=== PATIENT | female | born 1960 | race Caucasian/White ===

== ENCOUNTER 2021-11-30 09:11 | Outpatient (CLI) | payer BC, SELFPAY ==
--- NOTE | ~2021-11-30 | US_ITS ---
EXAMINATION: US soft tissue LE RT DATE: 11/30/2021 09:45 INDICATION: Localized swelling, mass and lump at the lateral right thigh. TECHNIQUE: Multiple grayscale and Doppler ultrasound images of the region of concern at the lateral r ight thigh were obtained. COMPARISON: None FINDINGS: At the region of concern there is elongated heterogeneously hypoechoic region with poorly defined mar gins at the periphery of the musculature likely the vastus lateralis which lies deep to the superfici al fascia and measures 5 cm craniocaudal length, 1 cm in width and 0.5 cm in thickness. Some vascular flow seen within the region including extending through a perforating vessel which extends to the fa scia at the central portion of the hypoechoic region. IMPRESSION: 1. 5 x 1 x 0.5 cm hypoechoic region deep to the muscular fascia at the periphery of this likely vastu s lateralis muscle. Differential would include confluence of vessels, vascular malformation or small amount of fluid or hematoma along side a vessel. If clinically indicated could consider pre and postc ontrast MRI for further evaluation. Reviewed, dictated and finalized at location A. IMPRESSION: 1. 5 x 1 x 0.5 cm hypoechoic region deep to the muscular fascia at the peripher y of this likely vastus lateralis muscle. Differential would include confluence of vessels, vascular malformation or small amount of fluid or hematoma along s blank a vessel. If clinically indicated could consider pre and postcontrast MRI f or further evaluation.
== END 2021-11-30 09:12 | disposition home or self-care (01) ==
LOC: ANHIMG 09:14
PROVIDERS: Visit Provider Surgery
DX: R22.41 Localized swelling, mass and lump, right lower limb (principal)
CPT/HCPCS: 76882

== ENCOUNTER 2021-12-20 00:06 | Day surgery (SDC) | payer BC, SELFPAY ==
[2021-12-09 11:34] VITALS: BMI 29.2
[2021-12-20 08:12] VITALS: BP 102/63; PULSE 66; RESP 13; O2SAT 97
[2021-12-20] MEDS: LACTATED RINGERS 1,000 ML 150 ML IV CONT (08:21)
--- NOTE | 2021-12-20 08:26 | P.PNAN_ITS ---
Anes - Initial Pre Proc Eval Procedure: Operation Date: 12/20/21 10:00 Proposed Procedures p Screening Colonoscopy - Herve Fiore MD Date/Time: 12/20/21 08:26 Surgeon: Herve Fiore MD Pre Op Diagnosis: neoplasm screening Patient Data Age: 61 Gender: F Height: 1.6 m Weight: 74 kg Last Vital Signs Pulse 66 12/20/21 08:12 Resp 13 12/20/21 08:12 BP 102/63 12/20/21 08:12 Pulse Ox 97 12/20/21 08:12 Allergies Allergy/AdvReac Type Severity Reaction Status Date / Time No Known Allergies Allergy Verified 12/20/21 08:11 Home Medications Medication Instructions Recorded Confirmed Type No Home Medications 11/15/21 12/09/21 History Patient hx anesthesia problems: none Family hx anesthesia problems: none Results Review: All pre-operative results and documents have been reviewed as part of the pre-operative evaluation. [facility] Surgical History Surgical History History of appendectomy History of laryngoscopy History of tonsillectomy History of tubal ligation Family History Family History Mother Heart disease Cerebrovascular accident Hypertension Other Breast cancer Lung cancer Social History Social History Smoking packs per day: 0.5 Smoking cigarettes per day: 10.0 Years smoked: 40 Smoking pack-years: 20.00 Smoking status: Current some day smoker Tobacco type: cigarettes Alcohol intake: current Alcohol use details: rare Substance use: current Substance use type: marijuana Other substance usage details: OCC. 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 Informed Consent: The patient's anesthetic plan and its attendant risks and benefits were discussed with the patient/family/POA. Questions were solicited and answers provided to the satisfaction of the patient/family/POA.
--- NOTE | 2021-12-20 08:30 | PM.HPGS ---
History of Present Illness History of Present Illness Consent: Risks, benefits, and alternatives have been discussed and questions answered. Patient agrees to proceed with procedure. Chief complaint: neoplasm screening Narrative: Shannan Gonzalez is a 61 year old female here for first screening colonoscopy Review of Systems Constitutional: Constitutional: Denies headache(s) and Denies weakness Eyes: Eyes: Denies blurry vision ENT: Reports Normal hearing present, Denies headache(s) and Denies neck pain Cardiovascular: Cardiovascular: Denies chest pain and Denies dyspnea Respiratory: Respiratory: Denies dyspnea Gastrointestinal: Gastrointestinal: Reports no additional gastrointestinal complaints Genitourinary: Genitourinary: Denies dysuria Musculoskeletal: Musculoskeletal: Denies neck pain Integumentary/Breasts: Skin/Breast: Denies dry skin Neurologic: Reports Normal hearing present, Denies headache(s) and Denies weakness Psychiatric: Psychiatric: Denies anxiety Endocrine: Endocrine: Denies change in body appearance Hematologic/Lymphatic: Hematologic/Lymphatic: Denies easy bleeding Allergic/Immunologic: Allergic/Immunologic: Denies urticaria [facility] Past Medical History Medical History (Updated 12/20/21 @ 08:31 by Herve Fiore MD) Colon cancer screening Surgical History Surgical History History of appendectomy History of laryngoscopy History of tonsillectomy History of tubal ligation Family History Family History Mother Heart disease Cerebrovascular accident Hypertension Other Breast cancer Lung cancer Social History Social History Smoking packs per day: 0.5 Smoking cigarettes per day: 10.0 Years smoked: 40 Smoking pack-years: 20.00 Smoking status: Current some day smoker Tobacco type: cigarettes Alcohol intake: current Alcohol use details: rare Substance use: current Substance use type: marijuana Other substance usage details: OCC. 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 Spiritual care concerns: No Meds Home Medications and Allergies Home Medications Medication Instructions Recorded Confirmed Type No Home Medications 11/15/21 12/09/21 History Allergies Allergy/AdvReac Type Severity Reaction Status Date / Time No Known Allergies Allergy Verified 12/20/21 08:11 Vital Signs Vital Signs - 24 hr 12/20/21 08:12 Pulse Rate 66 Respiratory Rate 13 Blood Pressure 102/63 Pulse Oximetry 97 Exam Const: General: comfortable and no acute distress HENMT: General nose exam: Normal nares present Eyes: General: appearance normal, both eyes and all related structures Neck: Neck: no JVD Resp: Auscultation: clear to auscultation bilaterally Cardio: Rate: regular rate Rhythm: regular rhythm GI: Inspection: non-distended GI Palp: Yes Soft to palpation Skin: General skin exam: normal color Neuro: General: gait normal Speech: normal speech Extrem: General: normal to inspection Psych: Mental Status: mental status grossly normal Assessment and Plan Assessment and plan (1) Colon cancer screening: Code(s): Z12.11 - Encounter for screening for malignant neoplasm of colon Status: Acute Assessment and Plan: colonoscopy
[2021-12-20 08:55] VITALS: BP 110/74; PULSE 64; RESP 14; O2SAT 99
[2021-12-20 09:05] VITALS: BP 125/68; PULSE 63; RESP 13; O2SAT 100
[2021-12-20 09:15] VITALS: BP 120/71; PULSE 55; RESP 22; O2SAT 100
== END 2021-12-20 09:28 | disposition home or self-care (01) ==
PROVIDERS: Visit Provider Internal Medicine Gastroenterology
PROC: 0DJD8ZZ Inspection of Lower Intestinal Tract, Via Natural or Artificial Opening Endoscopic (ICD-10-PCS; CPT 45378; principal; 2021-12-20 10:00)
DX: Z12.11 Encounter for screening for malignant neoplasm of colon (principal); K57.30 Diverticulosis of large intestine without perforation or abscess without bleeding; K64.8 Other hemorrhoids; K63.5 Polyp of colon; F12.90 Cannabis use, unspecified, uncomplicated; F17.210 Nicotine dependence, cigarettes, uncomplicated
CPT/HCPCS: 45385; 88305; J2704; J7120

== ENCOUNTER 2021-12-27 01:18 | Day surgery (SDC) | payer BC, SELFPAY ==
[2021-12-22 09:44] VITALS: BMI 29.2
--- NOTE | 2021-12-22 10:05 | PC.NURSE ---
Report to the Outpatient Waiting Room, entrance under the green pavilion located off [facility], at 1230 on 12-27-21. OR Time: 1430. - You and your visitor will be asked a series of questions to screen for COVID 19 for your protection. - A mask is required within the hospital. Preoperative COVID Testing Requirements: No COVID Test needed if: (proof is required; if not received patient will have Rapid Test prior to entry) - Patient has received COVID Vaccine at least 14 days prior to procedure date or - Patient has positive COVID test result within last 90 days of surgery date. COVID Test needed if above criteria is not met If not COVID vaccinated a COVID test must be conducted within 72 hours of surgery and patient is asked to isolate self from time of testing until procedure. You will go to the [facility] for your COVID testing. The [facility] is located at the corner of [address] [facility]. You will only be called if COVID results are positive and your surgeon may reschedule your elective surgery date. Patients may have clear liquids (water, carbonated beverages, clear teas, apple juice) until 3 hours prior to surgery with a maximum of 20 ounces. 1130 - No food from midnight until time of surgery - Infants may have breast milk until 4 hours before surgery, formula 6 hours prior to surgery. - Children will be allowed to drink immediately following surgery. If applicable, please bring a bottle or sippy cup to assist with drinking. Juice, water, soda, and popsicles are readily available. For infants on formula, please bring formula the day of surgery. Pacifiers are allowed. Take the following medications with a SIP of water the morning of surgery: None Medications to discontinue per physician: N/A Date to take last dose: N/A Please no make-up, nail telugu, hairspray, perfume, deodorant, or body powder the day of surgery. No jewelry (including any body piercings) or valuables the day of surgery, leave them at home. Please take a shower or bath the night before, or the morning of, surgery with an antibacterial soap. Wear comfortable, loose fitting clothing. Children are encouraged to wear pajamas. - Jewelry must be removed prior to entering the operating room. Rings and piercings that are not removed may be cut off. - The hospital will not accept responsibility for valuables. - Please leave all valuables, including medications, at home the day of surgery. If you are going home after surgery, a licensed crew truck driver must drive you home. - NO public transportation without another adult. - We recommend that an adult stay with you for 24 hours following discharge. - We also recommend that you do not drive, make important decision, drink alcoholic beverages, or take any drugs that were not prescribed by your health care provider for at least 24 hours after your discharge time. For Pediatric surgeries, we recommend two adults accompany the child home (only one inside the building at this time). One visitor will be allowed to accompany the patient into the hospital. Patients visitor will be instructed to remain with patient at all times or leave the building. We will allow the visitor to come back to the postoperative area when patient is ready. Follow any additional instructions given to you from your surgeon. Telephone instructions given to Shannan Gonzalez and asked if any additional questions and then verbalized understanding. Patient advised to call surgeon office or pre surgery nurse liaison [phone] if any additional questions.
[2021-12-27 10:30] VITALS: BP 101/61; PULSE 68; RESP 14; TEMP 36.2; O2SAT 100
--- NOTE | 2021-12-27 12:28 | PM.IMHP ---
H&P: HPI History of Present Illness Date/Time: 12/27/21 12:28 Chief Complaint: multiple masses Narrative: 61 yo woman presents for excision of 3 cm right upper back mass, 4 cm mid back mass, 2 cm right cecal mass, and 5 mm right thigh skin lesion. She reports no new changes since last seen in the office. Review of Systems Review of Systems: All systems reviewed & are unremarkable except as noted in HPI and below Constitutional: Constitutional: Denies chills, Denies fever(s), Denies headache(s) and Denies weight loss Eyes: Eyes: Denies change in vision ENT: Denies dizziness, Denies headache(s), Denies neck mass and Denies throat swelling Cardiovascular: Cardiovascular: Denies chest pain, Denies lightheadedness and Denies dyspnea Respiratory: Respiratory: Denies cough, Denies dyspnea and Denies wheezing Gastrointestinal: Gastrointestinal: Denies abdominal pain, Denies change in bowel habits, Denies nausea and Denies vomiting Genitourinary: Genitourinary: Denies hematuria and Denies dysuria Musculoskeletal: Musculoskeletal: Reports as per HPI Integumentary/Breasts: Skin/Breast: Reports as per HPI Neurologic: Denies dizziness and Denies headache(s) Allergic/Immunologic: Allergic/Immunologic: Denies throat swelling and Denies wheezing [facility] Past Medical History Medical History (Updated 12/20/21 @ 08:31 by Herve Fiore MD) Colon cancer screening Surgical History Surgical History History of appendectomy History of laryngoscopy History of tonsillectomy History of tubal ligation Family History Family History Mother Heart disease Cerebrovascular accident Hypertension Other Breast cancer Lung cancer Social History Social History Smoking packs per day: 0.5 Smoking cigarettes per day: 10.0 Years smoked: 40 Smoking pack-years: 20.00 Smoking status: Current every day smoker Tobacco type: cigarettes Second hand tobacco smoke exposure: No Alcohol intake: never Alcohol use details: rare Substance use: former Substance use type: marijuana Other substance usage details: OCC. 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 Spiritual care concerns: No Meds Home Medications and Allergies Home Medications Medication Instructions Recorded Confirmed Type No Home Medications 11/15/21 12/27/21 History Allergies Allergy/AdvReac Type Severity Reaction Status Date / Time No Known Allergies Allergy Verified 12/27/21 11:05 Vital Signs Vital Signs - 24 hr 12/27/21 10:30 Temperature 36.2 C L Pulse Rate 68 Respiratory Rate 14 Blood Pressure 101/61 Pulse Oximetry 100 Exam Const: General: no acute distress and alert Orientation/consciousness: patient oriented x3 HENMT: Head: normocephalic and atraumatic Ears: hearing grossly normal bilaterally General nose exam: Normal nares present Mouth: Yes Normal oral and palatal mucosa present Eyes: Periorbital: periorbital findings normal Sclera: sclerae normal EOM: EOMs intact bilaterally Neck: Neck: normal visual inspection, no lymphadenopathy and trachea midline Chest: Chest palpation & inspection: normal inspection of the chest Resp: Effort & Inspection: normal respiratory effort Auscultation: clear to auscultation bilaterally Cardio: Jugular venous distension: no JVD Rate: regular rate Rhythm: regular rhythm Heart sounds: S1 normal heart sound present and S2 normal heart sound present Peripheral pulses: Peripheral pulses 2+ throughout GI: Inspection: normal to inspection GI Palp: Yes Soft to palpation, No Tenderness to palpation present (GI), No Guarding due to palpation present (GI) and No Rebound tenderness present Percussion: Yes normal to percussion Auscultation: normal
--- NOTE | 2021-12-27 12:31 | WPDHPUPDATE1 ---
History and Physical Update Update Date/Time: 12/27/21 12:31 History and Physical has been reviewed, including an updated exam of the patient. There are NO changes in the patient's condition. Risks, benefits, and alternatives have been discussed and questions answered. Patient agrees to proceed with procedure.
--- NOTE | 2021-12-27 12:58 | P.PNAN_ITS ---
Anes - Initial Pre Proc Eval Procedure: Operation Date: 12/27/21 12:00 Proposed Procedures p Excision Right Upper Back, Mid Back, Right Sacral Masses, Excision Right Thigh Skin Lesion - Jorge Kc DO Date/Time: 12/27/21 12:58 Surgeon: Jorge Kc DO Pre Op Diagnosis: Back Masses, Rt Thigh Mass , Skin Lesion Rt Leg Patient Data Age: 61 Gender: F Height: 1.6 m Weight: 97.1 kg Last Vital Signs Temp 97.1 F L 12/27/21 10:30 Pulse 68 12/27/21 10:30 Resp 14 12/27/21 10:30 BP 101/61 12/27/21 10:30 Pulse Ox 100 12/27/21 10:30 Allergies Allergy/AdvReac Type Severity Reaction Status Date / Time No Known Allergies Allergy Verified 12/27/21 11:05 Home Medications Medication Instructions Recorded Confirmed Type No Home Medications 11/15/21 12/27/21 History Patient hx anesthesia problems: none Family hx anesthesia problems: none Results Review: All pre-operative results and documents have been reviewed as part of the pre-operative evaluation. [facility] Past Medical History Medical History (Updated 12/20/21 @ 08:31 by Herve Fiore MD) Colon cancer screening Surgical History Surgical History History of appendectomy History of laryngoscopy History of tonsillectomy History of tubal ligation Family History Family History Mother Heart disease Cerebrovascular accident Hypertension Other Breast cancer Lung cancer Social History Social History Smoking packs per day: 0.5 Smoking cigarettes per day: 10.0 Years smoked: 40 Smoking pack-years: 20.00 Smoking status: Current every day smoker Tobacco type: cigarettes Second hand tobacco smoke exposure: No Alcohol intake: never Alcohol use details: rare Substance use: former Substance use type: marijuana Other substance usage details: OCC. 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 Informed Consent: The patient's anesthetic plan and its attendant risks and benefits were discussed with the patient/family/POA. Questions were solicited and answers provided to the satisfaction of the patient/family/POA.
[2021-12-27] MEDS: ceFAZolin 2 GM/D5W 50 ML 2 GM/50 ML BAG IVPB (13:05)
[2021-12-27] MEDS: LIDO 1%/EPINEPHRINE 1:100,000 50 ML VIAL INFILTRATE (13:37)
--- NOTE | 2021-12-27 14:25 | W.PM.PROC2 ---
Procedure Note - Detailed Date of Procedure 12/27/21 Pre-op Diagnosis Back Masses, Rt Thigh Mass , Skin Lesion Rt Leg Post-op Diagnosis Same Procedure Performed 1. Excision 3 cm right upper back mass 2. Excision 4 cm mid back mass 3. Excisions 4 cm right hip/sacral mass 4. Excision 5 mm right thigh skin lesion Surgeon Jorge Kc DO Floor Helper Ema Espinoza NP Anesthesia MAC and Local (1% lidocaine with epinephrine) Indications This is a 61-year-old woman who presented with multiple painful masses. She had 2 masses on her back, 1 in the right upper back and 1 in the midline mid back. She also had 1 mass on the right hip/sacral region. She then had a skin lesion on her right thigh that was slightly raised and easily got irritated with scratching. Decision was made to excise the masses and the skin lesion. Findings All of the back and hip/sacral masses were excised completely. The right upper back mass measured 3 cm and appeared to be likely a lipoma. The midback mass was about 4 cm and appeared likely to be a lipoma. The right hip/sacral mass was somewhat inconsistent but appeared to be fatty tissue in nature. This appeared to track further lateral and was nearly wrapping around towards the anterior region. It was difficult to tell whether this could possibly be coming from lumbar hernia but this did appear too far out lateral to be considered a lumbar hernia. Once all the fatty tissue was excised, I could not identify a clear hernia defect. Therefore this appeared likely to be just a subcutaneous lipoma that was tracking laterally. This mass measured about 4 cm wide. The skin lesion was then excised completely and this was about 5 mm wide. The skin of all the incisions was then reapproximated using 4-0 nylon simple interrupted sutures. Description of Procedure Procedure as well as risks, benefits, and alternatives were discussed with the patient. Written consent was obtained and placed in chart prior to procedure. Patient was brought back to surgical suite. She was placed supine on operating table. Time-out was done to confirm patient and procedure. IV sedation was then administered by the anesthesia department. She was then repositioned into left lateral position. Her back and sacral/hip region was prepped and draped in sterile fashion using chlorhexidine prep and the right thigh region was prepped and draped in sterile fashion using chlorhexidine prep. 1% lidocaine with epinephrine was infiltrated locally over each of the masses. A 3 cm oblique incision was made over the right upper back mass using a 15 blade scalpel. Electrocautery was used for hemostasis and for dissection through the subcutaneous tissue. The mass was carefully excised completely using electrocautery. The wound bed was inspected. Hemostasis appeared adequate. 3-0 Vicryl deep sutures were placed approximate dermis and then 4-0 nylon simple interrupted sutures were placed at the skin. A 4 cm vertical incision was then made over the mid back mass using a 15 blade scalpel. Electrocautery was used for hemostasis and for dissection through subcutaneous tissue. The mass was then encountered and this was carefully dissected free using electrocautery. The mass was excised completely and sent to the lab for pathology. The wound bed was then inspected and hemostasis appeared adequate no other masses were identified. 3-0 Vicryl deep dermal sutures were then placed followed by 4-0 nylon simple interrupted sutures. A 4 cm transverse incision was made over the right hip/sacral mass using a 15 blade scalpel. Electrocautery was used for hemostasis and for dissection through the subcutaneous tissue. The mass was encountered and was carefully dissected free and excised completely using electrocautery. The mass was carefully completely excised and then sent to the lab for pathology. The wound bed was then inspected and hemostasis appeared adequate. No other masses were identif
[2021-12-27 14:38] VITALS: BP 117/73; PULSE 59; RESP 16; O2SAT 100
[2021-12-27] MEDS: LACTATED RINGERS 1,000 ML 30 ML IV CONT (14:38)
[2021-12-27 15:05] VITALS: BP 120/62; PULSE 66; RESP 16; O2SAT 99
== END 2021-12-27 15:22 | disposition home or self-care (01) ==
PROVIDERS: Visit Provider Surgery
PROC: (CPT 21931; principal; 2021-12-27 12:00)
DX: D17.1 Benign lipomatous neoplasm of skin and subcutaneous tissue of trunk (principal); L57.0 Actinic keratosis; F17.210 Nicotine dependence, cigarettes, uncomplicated; E66.9 Obesity, unspecified; Z68.37 Body mass index [BMI] 37.0-37.9, adult
CPT/HCPCS: 21931 ×3; 11400; 88304; 88305; A9270; J0690; J1100; J2250; J2405; J2704; J3010; J7120